=== PATIENT | female | born 1935 | race Caucasian/White ===

== ENCOUNTER 2017-08-26 12:20 | Inpatient (IN) | payer MEDICARE, BC ==
[~2017-08-26] VITALS: Ht 162.6 cm; Wt 54.4 kg
[~2017-08-26 12:20] MED LIST: ATR80PT PO; CEFU250T11 PO; DOCU-202 PO; FLU45SYR17 IM; FLU45SYR25 IM ONLY; LAMO100T52 PO; LISI-362 PO; MEGE400O23 PO; MOM PO; OMEP-125 PO; PNEU0.5D3 IM; POTA20PA10 PO; Potassium Chloride PO
--- NOTE | 2017-08-26 12:21 | ER Report ---
History and Physical Time Seen By MD: 12:21 HPI/ROS CHIEF COMPLAINT: Altered mental status HISTORY OF PRESENT ILLNESS: Patient is an 82-year-old female who has advanced dementia who is brought to the emergency department by her family for increased level of agitation and altered mental status. She recently was admitted to the hospital at the end of June of this year for urinary tract infection for similar type symptoms. Patient has not been eating or drinking in the past few days which raised the concern of the family members. For this reason she was brought to the emergency department for further evaluation. There is no reported fever at home. Patient is unable to really provide any useful history based on her mental status REVIEW OF SYSTEMS: Patient is unable to provide review of systems due to her advanced dementia. Family members say that she is not acting and responding normally she is also not eating or drinking which is not her usual Allergies: Coded Allergies: Penicillins (Verified Allergy, Unknown, 07/07/17) Sulfa (Sulfonamide Antibiotics) (Verified Allergy, Unknown, 07/07/17) codeine (Verified Allergy, Unknown, 07/07/17) Home Meds Active Scripts Cephalexin Monohydrate (CEPHALEXIN) 500 Mg Cap, 500 MG PO BID, #10 CAP Prov:GISELLA LIRIANO MD 08/28/17 Megestrol Acetate (MEGESTROL ACETATE) 400 Mg/10 Ml Oral.susp, 4 ML PO QDAY, #1 BOTTLE 5 Refills Prov:JAYSON FLAHERTY MD 08/21/17 Reported Medications Melatonin (MELATONIN) 1 Mg/1 Ml Liquid, 1 MG PO QHS 08/26/17 Lamotrigine (LAMOTRIGINE) 100 Mg Tablet, 100 MG PO QDAY ordered bid but taking q day 08/26/17 Discontinued Reported Medications Potassium Chloride (KLOR-CON) 20 Meq Packet, 1 PACKET PO QDAY, PACKET Mix with water, apple juice, apple sauce, etc 08/21/17 Discontinued Scripts Lamotrigine (LAMOTRIGINE) 100 Mg Tablet, 1 TAB PO BID, #180 TAB 3 Refills Prov:JAYSON FLAHERTY MD 10/29/16 Magnesium Hydroxide (MILK OF MAGNESIA) 400 Mg/5 Ml Oral.susp, 30 ML PO QDAY Y for CONSTIPATION, #1 BOT 1 Refill Prov:ANA LILIA LIRIANO MD 07/11/17 [Potassium Chl Pwd (*)20 Meq Pk] 20 MEQ PACK No Conflict Check, 20 MEQ PO DAILY , #10 PACK 0 Refills Mix with water/juice/applesauce/etc. Prov:ANA LILIA LIRIANO MD 07/11/17 Cefuroxime Axetil (CEFUROXIME) 250 Mg Tablet, 250 MG PO DAILY, #5 TAB 0 Refills Prov:ANA LILIA LIRIANO MD 07/11/17 Smoking Status: Former Smoker Hx Substance Use Disorder: No Constitutional Vital Sign - Last 24 Hours 08/26/17 08/26/17 08/26/17 08/26/17 12:24 12:26 12:30 12:31 Temp 97.5 Pulse 117 Resp 18 16 B/P (MAP) 113/77 113/77 (89) 134/111 (119) Pulse Ox 96 O2 Delivery Room Air 08/26/17 08/26/17 08/26/17 08/26/17 12:35 12:40 12:45 12:50 Pulse 105 105 115 112 Resp 10 14 15 16 B/P (MAP) 108/78 (88) Pulse Ox 91 100 08/26/17 08/26/17 08/26/17 08/26/17 12:55 13:00 13:05 13:10 Pulse 110 114 110 Resp 10 17 17 B/P (MAP) 109/96 (100) Pulse Ox 97 97 96 08/26/17 08/26/17 08/26/17 08/26/17 13:15 13:20 13:25 13:30 Pulse 106 101 105 115 Resp 6 19 14 19 B/P (MAP) 117/79 (92) Pulse Ox 94 08/26/17 08/26/17 08/26/17 08/26/17 13:35 13:40 13:45 13:50 Pulse 100 94 Resp 16 11 13 11 B/P (MAP) 113/91 (98) Pulse Ox 99 100 08/26/17 08/26/17 08/26/17 08/26/17 14:20 14:25 14:30 14:35 Pulse 118 99 102 ??? Resp 15 13 11 6 B/P (MAP) 130/100 (110) Pulse Ox 97 08/26/17 08/26/17 08/26/17 08/26/17 14:40 14:45 14:50 14:55 Pulse 98 98 93 94 Resp 13 12 8 12 B/P (MAP) 150/79 (102) 08/26/17 08/26/17 08/26/17 08/26/17 15:00 15:05 15:10 15:15 Pulse 92 96 92 89 Resp 15 15 12 9 B/P (MAP) 136/77 (96) Pulse Ox 93 94 92 94 08/26/17 08/26/17 08/26/17 08/26/17 15:20 15:25 15:30 15:35 Pulse 93 95 92 86 Resp 20 11 14 14 B/P (MAP) 106/75 (85) Pulse Ox 94 91 93 93 08/26/17 08/26/17 15:40 15:45 Pulse 87 89 Resp 19 11 B/P (MAP) 124/91 (102) Pulse Ox 96 93 Physical Exam General Appearance: The patient is alert, has no immediate need for airway protection and no signs of toxicity. Eyes: Pupils equal and round no pallor or injection. ENT, Mouth: Mucous membranes are moist. Respiratory: There are no retractions, lungs are clear to auscultation. Cardiovascular: Regular rate and rhythm. Gastrointestinal: Abdomen is soft and non tender, no masses, bowel sounds normal. Neurological: Awake, confused Skin: Warm and dry, no rashes. Musculoskeletal: Neck is supple non tender. Extremities are nontender, nonswollen and have full range of motion. Medical Decision Making Data Points Result Diagram: 08/27/17 0755 08/28/17 0522 Laboratory Hematology Test 08/26/17 13:14 08/26/17 13:31 Total Bilirubin 1.3 mg/dl (0.2-1.3) Aspartate Amino Transf (AST/SGOT) 43 U/L (0-35) Alanine Aminotransferase (ALT/SGPT) 20 U/L (0-56) Alkaline Phosphatase 77 U/L (0-126) Ammonia 14 UMOL/L (9-33) Troponin I 0.029 ng/ml Total Protein 7.5 gm/dl (6.3-8.2) Albumin 4.2 g/dl (3.5-5.0) Thyroid Stimulating Hormone (TSH) 1.91 uIU/ml (0.46-4.68) Urine Color Joy Urine Clarity Slightly-cloudy Urine pH 5.0 pH (4.8-9.5) Urine Specific [place] 1.027 Urine Protein 30 mg/dL (NEGATIVE) Urine Glucose (UA) Negative mg/dL (NEGATIVE) Urine Ketones Negative mg/dL (NEGATIVE) Urine Blood Small (NEGATIVE) Urine Nitrite Positive (NEGATIVE) Urine Bilirubin Negative (NEGATIVE) Urine Urobilinogen 4.0 mg/dL (0.2-1.9) Urine Leukocyte Esterase Trace (NEGATIVE) Urine RBC None /HPF (0-2/HPF) Urine WBC 8 /HPF (0-5/HPF) Urine WBC Clumps Few /HPF Urine Squamous Epithelial Cells Many /LPF (NONE-FEW) Urine Transitional Epithelial Cells Few /LPF (NONE-FEW) Urine Bacteria Many /HPF (NONE-FEW) Urine Mucus Few /HPF (NONE-FEW) Chemistry Test 08/26/17 13:14 08/26/17 13:31 Total Bilirubin 1.3 mg/dl (0.2-1.3) Aspartate Amino Transf (AST/SGOT) 43 U/L (0-35) Alanine Aminotransferase (ALT/SGPT) 20 U/L (0-56) Alkaline Phosphatase 77 U/L (0-126) Ammonia 14 UMOL/L (9-33) Troponin I 0.029 ng/ml Total Protein 7.5 gm/dl (6.3-8.2) Albumin 4.2 g/dl (3.5-5.0) Thyroid Stimulating Hormone (TSH) 1.91 uIU/ml (0.46-4.68) Urine Color Joy Urine Clarity Slightly-cloudy Urine pH 5.0 pH (4.8-9.5) Urine Specific [place] 1.027 Urine Protein 30 mg/dL (NEGATIVE) Urine Glucose (UA) Negative mg/dL (NEGATIVE) Urine Ketones Negative mg/dL (NEGATIVE) Urine Blood Small (NEGATIVE) Urine Nitrite Positive (NEGATIVE) Urine Bilirubin Negative (NEGATIVE) Urine Urobilinogen 4.0 mg/dL (0.2-1.9) Urine Leukocyte Esterase Trace (NEGATIVE) Urine RBC None /HPF (0-2/HPF) Urine WBC 8 /HPF (0-5/HPF) Urine WBC Clumps Few /HPF Urine Squamous Epithelial Cells Many /LPF (NONE-FEW) Urine Transitional Epithelial Cells Few /LPF (NONE-FEW) Urine Bacteria Many /HPF (NONE-FEW) Urine Mucus Few /HPF (NONE-FEW) Urinalysis Test 08/26/17 13:31 Urine Color Joy Urine Clarity Slightly-cloudy Urine pH 5.0 pH (4.8-9.5) Urine Specific [place] 1.027 Urine Protein 30 mg/dL (NEGATIVE) Urine Glucose (UA) Negative mg/dL (NEGATIVE) Urine Ketones Negative mg/dL (NEGATIVE) Urine Blood Small (NEGATIVE) Urine Nitrite Positive (NEGATIVE) Urine Bilirubin Negative (NEGATIVE) Urine Urobilinogen 4.0 mg/dL (0.2-1.9) Urine Leukocyte Esterase Trace (NEGATIVE) Urine RBC None /HPF (0-2/HPF) Urine WBC 8 /HPF (0-5/HPF) Urine WBC Clumps Few /HPF Urine Squamous Epithelial Cells Many /LPF (NONE-FEW) Urine Transitional Epithelial Cells Few /LPF (NONE-FEW) Urine Bacteria Many /HPF (NONE-FEW) Urine Mucus Few /HPF (NONE-FEW) Microbiology Microbiology Date/Time Source Procedure Growth Status 08/26/17 13:14 Blood Peripheral Draw Blood Culture - Preliminary NO GROWTH AFTER 2 DAYS, REINCUBATED Resulted 08/26/17 12:51 Blood Peripheral Draw Blood Culture - Preliminary NO GROWTH AFTER 2 DAYS, REINCUBATED Resulted 08/26/17 13:31 Cath Urine Urine Culture - Final Escherichia Coli Complete EKG/Imaging EKG Interpretation EKG shows sinus tachycardia with a ventricular rate of 120 bpm. Monitor Interpretation: Sinus Tachycardia Imaging MR: [id number] V: [id number] EXAM DATE: ORDERING PHYSICIAN: CARIN PINON TECHNOLOGIST: [place] [facility] [place] : 1935 Visit/Account:[id number] Date of Sevice: 08/26/2017 EXAMINATION: CT abdomen and pelvis without IV contrast HISTORY: AMS. TECHNIQUE: Axial CT images of the abdomen and pelvis were obtained without IV contrast, with coronal and sagittal 2D reconstructed images. One of the following dose optimization techniques was utilized in the performance of this exam: Automated exposure control; adjustment of the mA and/ or kV according to the patient's size; or use of an iterative reconstruction technique. Specific details can be referenced in the facility's radiology CT exam operational policy. COMPARISON: None. FINDINGS: Evaluation of the solid and viscus parenchymal organs is limited without the benefit of IV contrast. Image quality is also degraded by patient motion artifact. Liver: Normal hepatic size and morphology. Calcified granulomas in the liver. Gallbladder and bile ducts: Cholecystectomy. Spleen: Negative. Pancreas: Negative. Adrenal glands: Negative. Kidneys: No urinary calculi or hydronephrosis. Bowel and peritoneum: The small bowel and colon are normal in caliber. No bowel obstruction. No free fluid or free intraperitoneal air. Scattered colonic diverticulosis, without evidence of diverticulitis. Pelvic structures: The urinary bladder is decompressed, with a Carmen catheter in place. Lymph node assessment: Negative. Vessels: Moderate vascular calcifications. There is mild ectasia of the infrarenal abdominal aorta, measuring 2.3 cm. Musculoskeletal: No acute osseous findings. Osteopenia, with mild scattered degenerative changes along the spine. Body wall: Negative. Lung bases: Negative. IMPRESSION: 1. No acute intra-abdominal findings by noncontrast CT imaging. 2. Colonic diverticulosis. 3. Cholecystectomy. Report Dictated By: Marc Jolley MD at 08/26/2017 2:35 PM Report E-Signed By: Marc Jolley MD at 08/26/2017 2:38 PM WSN:[id number] FACILITY: [facility] PATIENT NAME: Lisa sIrael : 1935 MR: [id number] V: [id number] EXAM DATE: ORDERING PHYSICIAN: CARIN PINON TECHNOLOGIST: [place] [facility] [place] [facility] [place] Lisa Israel : 1935 Visit/Account:[id number] Date of Sevice: 08/26/2017 EXAMINATION: CT HEAD WITHOUT CONTRAST COMPARISON: 07/07/2017 HISTORY: Altered mental status PROCEDURE: Noncontrast CT from the vertex through the skull base. One of the following dose optimization techniques was utilized in the performance of this exam: Automated exposure control; adjustment of the mA and/or kV according to the patient's size; or use of an iterative reconstruction technique. Specific details can be referenced in the facility's radiology CT exam operational policy. FINDINGS: Brain volume: Moderate global atrophy. Hemorrhage/extra-axial fluid: No intracranial hemorrhage or extra-axial fluid collection. Scattered fat attenuation foci in the left extra-axial space as before. Mass effect/midline shift/edema: None. Ischemia: Left temporal encephalomalacia. Moderate chronic white matter disease elsewhere. No acute eaton-white differentiation loss. Ventricles and basal cisterns: Unchanged. Posterior fossa: Negative. Vessels: Carotid atherosclerosis. Calvarium, skull base, and scalp: Left-sided craniotomy as before. Visualized sinuses and orbits: Visualized paranasal sinuses are clear. Visualized globes are unremarkable. IMPRESSION: 1. No intracranial hemorrhage or mass effect. 2. Atrophy, chronic white matter disease, and left temporal encephalomalacia. No CT evidence of acute ischemia but if there is a clinical concern for an acute ischemic event, consider further characterization by MRI. Report Dictated By: Nile Estes MD at 08/26/2017 2:45 PM Report E-Signed By: Nile Estes MD at 08/26/2017 2:50 PM WSN:[id number] ED Course/Re-evaluation Clinical Indication for ER IV: Hydration, IV Access ED Course 08/26/2017 2:57:54 pm patient with urinary tract infection based on urine but also evidence of dehydration based on blood work. We will give a 30 mL/kg bolus of normal saline per sepsis protocol. Lactate 4.3. Monitor. Patient given IV Rocephin at this time we will contact hospitalist for admission Decision to Disposition Date: Aug 26, 2017 Decision to Disposition Time: 15:17 Depart Departure Latest Vital Signs Vital Signs Date Time Temp Pulse Resp B/P (MAP) Pulse Ox O2 Delivery O2 Flow Rate FiO2 08/26/17 15:45 89 11 93 08/26/17 15:40 124/91 (102) 08/26/17 12:24 97.5 Room Air Impression: Primary Impression: UTI (urinary tract infection) Additional Impressions: Sepsis Hypernatremia Condition: Improved Disposition: Admitted from ER (to DR Vines) Referrals: JAYSON FLAHERTY MD (PCP) New Scripts Cephalexin Monohydrate (CEPHALEXIN) 500 Mg Cap 500 MG PO BID, #10 CAP Prov: GISELLA LIRIANO MD 08/28/17 Problem Qualifiers Primary Impression: UTI (urinary tract infection) Urinary tract infection type: acute cystitis Hematuria presence: without hematuria Qualified Codes: N30.00 - Acute cystitis without hematuria Additional Impressions: Sepsis Sepsis type: sepsis due to unspecified organism Qualified Codes: A41.9 - Sepsis, unspecified organism CARIN PINON MD Aug 26, 2017 12:21
[2017-08-26] MEDS ORDERED: NS(*) 0.9% 500 ML BAG 500 ML IV ONE ×3 (12:32→14:40)
--- NOTE | 2017-08-26 12:47 | EKG ---
[place] [facility] [place] NAME: JUAN LAMA : [id number] MR: [id number] V: [id number] EXAM DATE: ORDERING PHYSICIAN: CARIN PINON TECHNOLOGIST: ROCKY Mccallum Reason : TACHY Blood Pressure : / mmHG Vent. Rate : 120 BPM Atrial Rate : 120 BPM P-R Int : 118 ms QRS Dur : 066 ms QT Int : 330 ms P-R-T Axes : 089 088 078 degrees QTc Int : 466 ms Sinus tachycardia Diffuse, non-specific ST abnormalities When compared with ECG of 07-JUL-2017 11:55, No with diffuse, non-specifice ST abnormalities Confirmed by CAMILLE SEN ([id number]) on 08/26/2017 6:57:19 PM Referred By: SHARLENE Confirmed By:CAMILLE SEN
[2017-08-26 13:29] LABS: PLATELET COUNT, AUTOMATED 255 K/uL (150-450)
[2017-08-26] MEDS ORDERED: cefTRIAXone 1 GM VIAL IVP ONE (13:50)
[2017-08-26] MEDS ORDERED: cefTRIAXone 1 GM VIAL ONE (14:31)
--- NOTE | 2017-08-26 14:42 | RADIOLOGY IMAGING REPORT ---
FACILITY: [facility] - [place] PATIENT NAME: Lisa Israel : 1935 MR: [id number] V: [id number] EXAM DATE: ORDERING PHYSICIAN: CARIN PINON TECHNOLOGIST: Location: [facility] - [place] Patient: Lisa Israel : 1935 Visit/Account:[id number] Date of Sevice: 08/26/2017 EXAMINATION: CT abdomen and pelvis without IV contrast HISTORY: AMS. TECHNIQUE: Axial CT images of the abdomen and pelvis were obtained without IV contrast, with rader l and sagittal 2D reconstructed images. One of the following dose optimization techniques was utilized in the performance of this exam: Autom ated exposure control; adjustment of the mA and/or kV according to the patient's size; or use of an i terative reconstruction technique. Specific details can be referenced in the facility's radiology C T exam operational policy. COMPARISON: None. FINDINGS: Evaluation of the solid and viscus parenchymal organs is limited without the benefit of IV contrast. Image quality is also degraded by patient motion artifact. Liver: Normal hepatic size and morphology. Calcified granulomas in the liver. Gallbladder and bile ducts: Cholecystectomy. Spleen: Negative. Pancreas: Negative. Adrenal glands: Negative. Kidneys: No urinary calculi or hydronephrosis. Bowel and peritoneum: The small bowel and colon are normal in caliber. No bowel obstruction. No free fluid or free intraperitoneal air. Scattered colonic diverticulosis, without evidence of diverticuli tis. Pelvic structures: The urinary bladder is decompressed, with a Carmen catheter in place. Lymph node assessment: Negative. Vessels: Moderate vascular calcifications. There is mild ectasia of the infrarenal abdominal aorta, measuring 2.3 cm. Musculoskeletal: No acute osseous findings. Osteopenia, with mild scattered degenerative changes al wanda the spine. Body wall: Negative. Lung bases: Negative. IMPRESSION: 1. No acute intra-abdominal findings by noncontrast CT imaging. 2. Colonic diverticulosis. 3. Cholecystectomy. Report Dictated By: Marc Jolley MD at 08/26/2017 2:35 PM Report E-Signed By: Marc Jolley MD at 08/26/2017 2:38 PM WSN:[id number]
--- NOTE | 2017-08-26 14:54 | RADIOLOGY IMAGING REPORT ---
[place] [facility] [place]IENT NAME: Lisa Israel : 1935 MR: [id number] V: [id number] EXAM DATE: ORDERING PHYSICIAN: CARIN PINON TECHNOLOGIST: Location: [facility] [place] Patient: Lisa Israel : 1935 Visit/Account:[id number] Date of Sevice: 08/26/2017 EXAMINATION: CT HEAD WITHOUT CONTRAST COMPARISON: 07/07/2017 HISTORY: Altered mental status PROCEDURE: Noncontrast CT from the vertex through the skull base. One of the following dose optimizat ion techniques was utilized in the performance of this exam: Automated exposure control; adjustment o f the mA and/or kV according to the patient's size; or use of an iterative reconstruction technique. Specific details can be referenced in the facility's radiology CT exam operational policy. FINDINGS: Brain volume: Moderate global atrophy. Hemorrhage/extra-axial fluid: No intracranial hemorrhage or extra-axial fluid collection. Scattered f at attenuation foci in the left extra-axial space as before. Mass effect/midline shift/edema: None. Ischemia: Left temporal encephalomalacia. Moderate chronic white matter disease elsewhere. No acute g ray-white differentiation loss. Ventricles and basal cisterns: Unchanged. Posterior fossa: Negative. Vessels: Carotid atherosclerosis. Calvarium, skull base, and scalp: Left-sided craniotomy as before. Visualized sinuses and orbits: Visualized paranasal sinuses are clear. Visualized globes are unremark able. IMPRESSION: 1. No intracranial hemorrhage or mass effect. 2. Atrophy, chronic white matter disease, and left temporal encephalomalacia. No CT evidence of acute ischemia but if there is a clinical concern for an acute ischemic event, consider further characteri zation by MRI. Report Dictated By: Nile Estes MD at 08/26/2017 2:45 PM Report E-Signed By: Nile Estes MD at 08/26/2017 2:50 PM WSN:[id number]
[2017-08-26 16:13] VITALS: BP 173/84
[2017-08-26] MEDS ORDERED: MELA1LIQ PO (16:56)
[2017-08-26] MEDS ORDERED: LAMO100T52 PO (16:56)
[2017-08-26] MEDS ORDERED: BISACODYL 10 MG SUPP PR PRN (18:05)
[2017-08-26] MEDS ORDERED: KCL 2 MEQ/ML 20 MEQ/10 ML VIAL 20 MEQ in D5 1/2 NS(*) 1000 ML BAG 1,000 ML IV PRN (18:05)
[2017-08-26] MEDS ORDERED: MAGNESIUM HYDROXIDE* 30ML UDCP PO PRN (18:05)
[2017-08-26] MEDS ORDERED: POLYETHYLENE GLYCOL 17 GM PKT ONE (18:18)
[2017-08-26] MEDS: POLYETHYLENE GLYCOL 17 GM PKT PO SCH (18:20)
[2017-08-26] MEDS: KCL/D1/2NS 20 MEQ 1000 ML 1,000 ML IV PRN (18:27)
--- NOTE | 2017-08-26 18:29 | History & Physical ---
History of Present Illness History of Present Illness 82yo female with a h/o advanced dementia who was brought to the ER for progressive weakness and lack of urine output. 5 days ago, she was in her normal state of health, and had blood tests done as part of a regular office visit and was found to have a sodium of 152. The family was told to encourage oral intake. 3 days ago, the patient became more confused than baseline and had decreased oral intake. For the last 2 days the patient hasn't been eating or drinking anything. Yesterday, was the last time she urinated. She has become weaker and weaker such that she wasn't able to ambulate. The family decided to bring her into the hospital. The family denies that the patient has complained of any f/c/cp/sob/dysuria/n/v. In the ER, she received about 1.5 liters of fluid and was started on Rocephin. 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 behavioral disturbance Status: Chronic Home Meds Active Scripts Megestrol Acetate (MEGESTROL ACETATE) 400 Mg/10 Ml Oral.susp, 4 ML PO QDAY, #1 BOTTLE 5 Refills Prov:JAYSON FLAHERTY MD 08/21/17 Reported Medications Melatonin (MELATONIN) 1 Mg/1 Ml Liquid, 1 MG PO QHS 08/26/17 Lamotrigine (LAMOTRIGINE) 100 Mg Tablet, 100 MG PO QDAY ordered bid but taking q day 08/26/17 Discontinued Reported Medications Potassium Chloride (KLOR-CON) 20 Meq Packet, 1 PACKET PO QDAY, PACKET Mix with water, apple juice, apple sauce, etc 08/21/17 Discontinued Scripts Lamotrigine (LAMOTRIGINE) 100 Mg Tablet, 1 TAB PO BID, #180 TAB 3 Refills Prov:JAYSON FLAHERTY MD 10/29/16 Magnesium Hydroxide (MILK OF MAGNESIA) 400 Mg/5 Ml Oral.susp, 30 ML PO QDAY Y for CONSTIPATION, #1 BOT 1 Refill Prov:ANA LILIA LIRIANO MD 07/11/17 [Potassium Chl Pwd (*)20 Meq Pk] 20 MEQ PACK No Conflict Check, 20 MEQ PO DAILY , #10 PACK 0 Refills Mix with water/juice/applesauce/etc. Prov:ANA LILIA LIRIANO MD 07/11/17 Cefuroxime Axetil (CEFUROXIME) 250 Mg Tablet, 250 MG PO DAILY, #5 TAB 0 Refills Prov:ANA LILIA LIRIANO MD 07/11/17 Allergies: Coded Allergies: Penicillins (Verified Allergy, Unknown, 07/07/17) Sulfa (Sulfonamide Antibiotics) (Verified Allergy, Unknown, 07/07/17) codeine (Verified Allergy, Unknown, 07/07/17) Patient History: FH: Alzheimers disease FH: alcoholism brother, , Age:45 sister, , Age:77 FH: dementia MOTHER, , Age:86 Unknown FATHER, Other Social/Family Hx She quit smoking in 1984 and smoked about 20yrs 1ppd. No reported alcohol use. She is and lives at home. Smoking Status: Former Smoker Hx Substance Use Disorder: No Social Drug Use: Never Review of Systems All Systems Reviewed/Normal: Yes, Except as Noted Exam Vital Signs Vital Signs Date Time Temp Pulse Resp B/P (MAP) Pulse Ox O2 Delivery O2 Flow Rate FiO2 08/26/17 16:59 93 Room Air 08/26/17 16:13 97.4 87 16 173/84 (113) General Appearance: Alert, Awake, No Acute Distress Neuro: Other (Doesn't follow commands or answer questions.) Cardiovascular: Regular Rate and Rhythm Respiratory: Clear to Auscultation GI: Abd Soft and Non-Tender Extremities: No Edema Medical Decision Making Data Points Result Diagram: 08/26/17 1314 08/26/17 1314 Item Value Date Time Lactate 4.3 mmol/L *H 08/26/17 1314 Creatinine 1.30 mg/dl H 07/11/17 0522 Creatinine 1.50 mg/dl H 08/21/17 1425 Creatinine 1.60 mg/dl H 08/26/17 1314 Sodium Level 144 mmol/L 07/11/17 0522 Sodium Level 152 mmol/L H 08/21/17 1425 Sodium Level 153 mmol/L H 08/26/17 1314 Aspartate Amino Transf (AST/SGOT) 39 U/L H 08/21/17 1425 Aspartate Amino Transf (AST/SGOT) 43 U/L H 08/26/17 1314 Alanine Aminotransferase (ALT/SGPT) 20 U/L 08/26/17 1314 Alanine Aminotransferase (ALT/SGPT) 21 U/L 08/21/17 1425 Alkaline Phosphatase 83 U/L 08/21/17 1425 Total Bilirubin 1.3 mg/dl 08/21/17 1425 Total Bilirubin 1.3 mg/dl 08/26/17 1314 Alkaline Phosphatase 77 U/L 08/26/17 1314 Ammonia 14 UMOL/L 08/26/17 1314 Troponin I 0.029 ng/ml 08/26/17 1314 Thyroid Stimulating Hormone (TSH) 1.91 uIU/ml 08/26/17 1314 Urine Blood Small 08/26/17 1331 Urine Nitrite Positive H 08/26/17 1331 Urine Urobilinogen 4.0 mg/dL H 08/26/17 1331 Urine Leukocyte Esterase Trace H 08/26/17 1331 Urine WBC 8 /HPF 08/26/17 1331 Urine WBC Clumps Few /HPF 08/26/17 1331 Urine Squamous Epithelial Cells Many /LPF H 08/26/17 1331 Urine Transitional Epithelial Cells Few /LPF 08/26/17 1331 Urine Bacteria Many /HPF H 08/26/17 1331 EKG / Imaging Imaging Abd/Pelvis CT - 1. No acute intra-abdominal findings by noncontrast CT imaging. 2. Colonic diverticulosis. 3. Cholecystectomy. Head CT - 1. No intracranial hemorrhage or mass effect. 2. Atrophy, chronic white matter disease, and left temporal encephalomalacia. No CT evidence of acute ischemia but if there is a clinical concern for an acute ischemic event, consider further characterization by MRI. Assessment and Plan Problems: (1) UTI (urinary tract infection) Status: Acute Assessment & Plan: She presented with increased weakness and confusion for a couple days prior to admission. Her WBC is elevated and had mild pyuria on catheter obtained UA. She was started on Rocephin. Blood and urine cultures are pending. (2) Hypernatremia Status: Acute Assessment & Plan: Secondary to decreased oral intake for about 2 days prior to admission. It is likely related to the UTI. Her lactate was elevated. She has been hydrated, so will recheck a lactate and BMP. Will continue hydration. (3) Brain tumor Status: Chronic Assessment & Plan: It was resected many years ago. She is on lamotrigine chronically (it is written to be taken twice daily, but her only gives it daily). A level is pending. (4) CKD (chronic kidney disease) stage 3, GFR 30-59 ml/min Status: Chronic Assessment & Plan: Baseline creatinine is 1.3-1.6. Will follow. Copies to: JAYSON FLAHERTY MD Venous Thromboembolism Antithrombotics Is Pt On Any Antithrombotics?: No Exam Sepsis Risk: No Definite Risk Problem Qualifiers (1) UTI (urinary tract infection): Urinary tract infection type: acute cystitis Hematuria presence: without hematuria Qualified Codes: N30.00 - Acute cystitis without hematuria CAMILLE SEN MD Aug 26, 2017 18:29
[2017-08-26 19:27] VITALS: BP 100/88
[2017-08-26 20:10] VITALS: BP 103/57
[2017-08-26] MEDS: MELATONIN 3 MG TAB PO SCH (20:47)
[2017-08-26] MEDS: DOCUSATE SOD LIQ 100 MG/10 ML UDC PO SCH (20:48)
[2017-08-26] MEDS ORDERED: DOCUSATE SODIUM 100 MG CAP PO SCH (21:00)
[2017-08-27 00:01] VITALS: BP 112/69
[2017-08-27 05:44] VITALS: BP 187/85
[2017-08-27 08:04] LABS: PLATELET COUNT, AUTOMATED 183 K/uL (150-450)
[2017-08-27 08:06] VITALS: BP 162/84
[2017-08-27] MEDS: KCL/D1/2NS 20 MEQ 1000 ML 1,000 ML IV PRN ×2 (08:26→22:56)
[2017-08-27] MEDS: lamoTRIgine 100 MG TAB PO SCH (08:26)
[2017-08-27] MEDS: ENOXAPARIN 30 MG/0.3 ML SYR SC SCH (08:27)
[2017-08-27] MEDS: DOCUSATE SOD LIQ 100 MG/10 ML UDC PO SCH ×2 (08:27→21:14)
[2017-08-27] MEDS: POLYETHYLENE GLYCOL 17 GM PKT PO SCH (08:27)
[2017-08-27] MEDS ORDERED: MEGESTROL ACETATE 40 MG/ML PO SCH (09:00)
[2017-08-27 10:10] VITALS: Ht 162.6 cm; Wt 54.4 kg
[2017-08-27 11:08] VITALS: BP 161/83
--- NOTE | 2017-08-27 11:38 | Hospitalist Progress Note ---
Subjective Progress Notes Subjective This patient was admitted for dehydration. She had no acute changes overnight. Patient Complains of: Cardiovascular: No: Chest Pain Respiratory: No: Shortness of Breath Physical Exam Vital Signs Date Time Temp Pulse Resp B/P (MAP) Pulse Ox O2 Delivery O2 Flow Rate FiO2 08/27/17 11:08 97.6 90 161/83 (109) 08/27/17 08:09 94 Room Air 08/27/17 08:06 16 Intake and Output 08/28/17 07:00 Intake Total 261 ml Balance 261 ml Intake Oral 30 ml IV Total 231 ml # Bowel Movements 1 Cardiovascular: Regular Rate and Rhythm Respiratory: Clear to Auscultation Result Diagram: 08/27/17 0755 08/27/17 0755 Monitor Interpretation: Sinus Tachycardia Assessment and Plan Problems: (1) UTI (urinary tract infection) Status: Acute Assessment & Plan: She was initially placed on ceftriaxone secondary to an elevated WBC and pyuria. It now appears that her elevated WBC was secondary to hemoconcentration and that her urine was contaminated. Antibiotics were discontinued today. (2) Dehydration Status: Resolved Assessment & Plan: She had not been eating or drinking for several days prior to admission. Her labs were consistent with significant dehydration. She is now improving with IV fluids. (3) Brain tumor Status: Chronic Assessment & Plan: It was resected many years ago. She is on lamotrigine chronically (it is written to be taken twice daily, but her only gives it daily). A level is pending. (4) CKD (chronic kidney disease) stage 3, GFR 30-59 ml/min Status: Chronic Assessment & Plan: Baseline creatinine is 1.3-1.6. Exam Sepsis Risk: Severe Sepsis Risk Problem Qualifiers (1) UTI (urinary tract infection): Urinary tract infection type: acute cystitis Hematuria presence: without hematuria Qualified Codes: N30.00 - Acute cystitis without hematuria RAFAEL SCHULTZ DO Aug 27, 2017 11:38
[2017-08-27] MEDS ORDERED: cefTRIAXone 1 GM VIAL IVP SCH (14:00)
--- NOTE | 2017-08-27 14:49 | SWALLOW EVALUATION ---
Initial ST Cio: Lois Mann MS, CCC-SHAFTING WORKER Type of Assessment: Dysphagia Evaluation Evaluation Date: 08-27-17 BACKGROUND The patient is an 89year old female admitted to [facility] UTI/dehydration. She was referred for an ST swallow evaluation. PREVIOUS LEVEL OF FUNCTION: Primary Medical Diagnosis: Aphasia post brain tumor approx 1986 Prior Hospitalization: Prior Level of Function: dependent on spouse for all IADLs, ADLs Medical Complications/Past Medical History: See chart for details Follows instructions: no Functional Communication Deficits impact swallow function/safety, or response to therapy: Yes DYSPHAGIA Dysphagia Risk Evaluation Protocol DREP: Water Swallow Test: Pass with modifications, Puree Swallow Test: Pass, Solids Swallow Test: Pass Dyshpagia Severity Rating Scale: Level 3: Mild-moderate dysphagia. potential for aspiration exists but is diminished by a modified diet at this time. Time for eating is significantly increased; thus supplemental nutrition may be indicated. Sialorrhea: No Xerostomia: No Supplemental Oxygen Use: No Oxygen Saturation: stable Oral Structure and Function: largely edentulous Respiratory/Swallow Coordination: Typically patterned (ie. exhale/swallow/ exhale) Oral Stage Oral Stage Dysphagia: decrease oral motor control with bolus intake of solids and liquids increasing risk of aspiration of liquids Pharyngeal Stage Pharyngeal Stage Dysphagia: No s/s of acute pharyngeal stage dysphagia including penetration/ aspiration with liquids or foods. Aspiration Risk: Increased d/t oral dysphagia, advanced age, dementia, dependent on others to assist with feed ST ASSESSMENT SUMMARY DYSPHAGIA Pt passed solids trials and passed liquids trials with modified bolus presentation. Liquids presented with spoon or syringe demonstrate decreased risk over cup rim drink d/t decreased oral motorl and bolus control from cup rim. u RECOMMENDATIONS 1. Diet Modification: Food: Continue YUNIER and regular/thin liquides from spoon/ syringe with return to cup rim as medical condition improves and pt demonstrates improved oral motor control for bolus management of cup rim sip 2. Speech Therapy: The patient would benefit from ST 4x/wk to address the above described concerns PLAN OF CARE Short Term Goals 1. The caregiver will receive safe swallow and modified diet education and provided indep teach back 2. The patient will demonstrate improved oral intake of liquids from cup rim to decrease risk of dehydration using tactile stim increase oral motor response. Usp Goals 1. The patient will demonstrate return to PLOF with liquids decreasing risk of dehydration Patient Goals: Return to prior level of independence with liq Rehabilitation Prognosis: Good. Medical condition improving Thank you for this referral. Lois Mann M.S., [facility]3]-SHAFTING WORKER Speech Therapist ALEJANDRO
[2017-08-27 16:20] VITALS: BP 170/107
[2017-08-27 18:41] VITALS: BP 168/81
[2017-08-27] MEDS ORDERED: DOCUSATE SOD LIQ 100 MG/10 ML UDC PO SCH (21:00)
[2017-08-27] MEDS: MELATONIN 3 MG TAB PO SCH (21:14)
[2017-08-28 03:34] VITALS: BP 161/78
[2017-08-28 08:06] VITALS: BP 110/93
--- NOTE | 2017-08-28 08:19 | Hospitalist Progress Note ---
Subjective Progress Notes Subjective This patient was admitted for dehydration and acute renal failure. She had no acute changes overnight. Patient Complains of: Cardiovascular: No: Chest Pain Respiratory: No: Shortness of Breath Physical Exam Vital Signs Date Time Temp Pulse Resp B/P (MAP) Pulse Ox O2 Delivery O2 Flow Rate FiO2 08/28/17 08:06 82 16 110/93 (99) 95 Room Air 08/28/17 03:34 97.7 Cardiovascular: Regular Rate and Rhythm Respiratory: Clear to Auscultation Result Diagram: 08/27/17 0755 08/28/17 0522 Monitor Interpretation: Sinus Tachycardia Assessment and Plan Problems: (1) UTI (urinary tract infection) Status: Acute Assessment & Plan: She was initially placed on ceftriaxone secondary to an elevated WBC and pyuria. It now appears that her elevated WBC was secondary to hemoconcentration and that her urine was contaminated. Antibiotics were discontinued. (2) Dehydration Status: Resolved Assessment & Plan: She had not been eating or drinking for several days prior to admission. Her labs were consistent with significant dehydration. She has improved with IV fluids. We did discuss the possibility of her receiving IV fluids through home health when her intake drops. Social work has been consulted. (3) Brain tumor Status: Chronic Assessment & Plan: It was resected many years ago. She is on lamotrigine chronically (it is written to be taken twice daily, but her only gives it daily). A level is therapeutic. (4) CKD (chronic kidney disease) stage 3, GFR 30-59 ml/min Status: Chronic Assessment & Plan: Baseline creatinine is 1.3-1.6. Exam Sepsis Risk: No Definite Risk Problem Qualifiers (1) UTI (urinary tract infection): Urinary tract infection type: acute cystitis Hematuria presence: without hematuria Qualified Codes: N30.00 - Acute cystitis without hematuria RAFAEL SCHULTZ DO Aug 28, 2017 08:19
[2017-08-28] MEDS: lamoTRIgine 100 MG TAB PO SCH (09:38)
[2017-08-28] MEDS: DOCUSATE SOD LIQ 100 MG/10 ML UDC PO SCH (09:38)
[2017-08-28] MEDS: POLYETHYLENE GLYCOL 17 GM PKT PO SCH (09:39)
[2017-08-28] MEDS: ENOXAPARIN 30 MG/0.3 ML SYR SC SCH (09:39)
--- NOTE | 2017-08-28 12:34 | Medical Nutrition Therapy ---
Nutrition Anthropometrics Height (Inches): 64.00 Height (Calculated Centimeters: 162.722942 Weight (Pounds): 120 Weight (Calculated Kilograms): 54.431 BMI Calculated: 20.60 Gwyn Nutrition Score: Very Poor Gwyn Nutrition Risk Score: 15 Dietary Referral Nutrition Risk Factors: Recent Nutrition Impact Nutrition Risk Comment: may pocket foods Physical Findings Physical Appearance: BMI- WNR Skin Appearance Skin Appearance: Edema Edema Location Modifier: Edema Location: Type of Edema: Degree of Edema: Gastrointestinal Symptoms GI Symtoms: Constipation Tube Present: Bowel Sounds: Recent Bowel Pattern: Stool Characteristics: Nutritional Diagnosis Nutritional Risk Acuity 2: Pr Appetite > 3d, Swallowing Problem Nutritional Risk Acuity 3: Alzheimer's Nutritional Risk Acuity 4: %IBW 90-100% Past Medical History: dementia, CKD stage 3, UTI, alzheimer's, brain tumor (removed 1986) Nutritional Acuity: 2-Moderate Nutrition Diagnosis: Inadequate Food Intake, Swallowing Difficulties Nutrition Etiology: Physiological Causes Nutrition Problem/Etiology/Sym: AEB intake ranging 5-50%; SPL eval recommending fluids by spoon Energy Requirement: 1280 (M-SJ) Protein Requirement: 55 (1gm/kg) Fluid Requirement: 1360 Diet Type: Diet as Tolerated YUNIER/REG Nutrition Intervention: Cont diet as ordered, Encourage intake, Between meal supplement Additional Diet Restrictions: PUT PROTEIN POWDER IN APPROPRIATE FOODS Diet Comment To [facility]: PLEASE OFFER NUTR SUPPL Nutrition Monitoring & Eval Nutrition Goals: Eat 75-100% Meal RD Patient Assessment Time: [address] Assessment Type: RD Assessment Patient Nutrition Acuity: 2-Moderate Follow Up Date: Sep 02, 2017 Nutritional Comment: 08/27/17 Pt admitted for UTI and altered mental status. Pt was admitted in June for UTI/lack of appetite as well. Weight has been stable since. Family reports lack of food/fluid intake over the last 3 days. Pt has only had bites of food since admission. Notable labs include Na 154, BUN 22, and Cr 1.3. Total pro and alb are WNL, but will offer nutr supplement and encourage food/fluid intake. 08/28 SALES ENGAGEMENT MANAGER eval recommended YUNIER with spoon or syring for thin liquids. Pt eating 0-50% of small to regular potions. BUN 15, creatinine 1.2. Dehydration resolved. alb 4.2. Will offer nutr supplments to increase kcal and protein intake. Cont to monitor and encourage intake. KAJAL SINGH Aug 28, 2017 12:34
[2017-08-28] MEDS ORDERED: CEPHALEXIN MONO 500 MG CAP PO SCH (13:50)
--- NOTE | 2017-08-28 14:10 | Hospitalist Depart ---
Discharge Summary Reason for Hosp/Final Diag: (1) UTI (urinary tract infection) Status: Acute Hospital Course & Plan: She was initially placed on ceftriaxone secondary to an elevated WBC and pyuria. Her cath urine culture grew E. coli which was vang sensitive. She was afebrile and WBC was normal at the time of discharge. She will continue Keflex 500mg bid for 5 days after discharge. (2) Dehydration Status: Resolved Hospital Course & Plan: She had not been eating or drinking for several days prior to admission. Her labs were consistent with significant dehydration. This improved with IV fluids. She may need IV fluids through home health when her intake drops. Social work has arranged for her to have Home Health services after discharge. (3) Brain tumor Status: Chronic Hospital Course & Plan: The patient is s/p resection many years ago. She is on lamotrigine chronically (it is written to be taken twice daily, but her only gives it daily). A level was therapeutic. (4) CKD (chronic kidney disease) stage 3, GFR 30-59 ml/min Status: Chronic Hospital Course & Plan: Baseline creatinine is 1.3-1.6. Creatinine on discharge was 1.2. Departure Weight (Pounds): 120 Result Diagram: 08/27/17 0755 08/28/17 0522 Item Value Date Time Lamotrigine (Lamictal) Level 6.2 ug/mL 08/26/17 5008 Condition: Improved Discharge: Home, Home Health PT/OT Follow Up For: PT For Strengthening, ST Evaluation and Treat Home Health RN Follow Up For: Nursing Assessment, Other Home Health PHILANTHROPY OFFICER Follow Up For: ADL Assistance Discharge Code Status: DNR, DNI Time Spent: < 30 min Discharge Instructions Home Meds Active Scripts Cephalexin Monohydrate (CEPHALEXIN) 500 Mg Cap, 500 MG PO BID, #10 CAP Prov:GISELLA LIRIANO MD 08/28/17 Megestrol Acetate (MEGESTROL ACETATE) 400 Mg/10 Ml Oral.susp, 4 ML PO QDAY, #1 BOTTLE 5 Refills Prov:JAYSON FLAHERTY MD 08/21/17 Reported Medications Melatonin (MELATONIN) 1 Mg/1 Ml Liquid, 1 MG PO QHS 08/26/17 Lamotrigine (LAMOTRIGINE) 100 Mg Tablet, 100 MG PO QDAY ordered bid but taking q day 08/26/17 Discontinued Reported Medications Potassium Chloride (KLOR-CON) 20 Meq Packet, 1 PACKET PO QDAY, PACKET Mix with water, apple juice, apple sauce, etc 08/21/17 Discontinued Scripts Lamotrigine (LAMOTRIGINE) 100 Mg Tablet, 1 TAB PO BID, #180 TAB 3 Refills Prov:JAYSON FLAHERTY MD 10/29/16 Magnesium Hydroxide (MILK OF MAGNESIA) 400 Mg/5 Ml Oral.susp, 30 ML PO QDAY Y for CONSTIPATION, #1 BOT 1 Refill Prov:ANA LILIA LIRIANO MD 07/11/17 [Potassium Chl Pwd (*)20 Meq Pk] 20 MEQ PACK No Conflict Check, 20 MEQ PO DAILY , #10 PACK 0 Refills Mix with water/juice/applesauce/etc. Prov:ANA LILIA LIRIANO MD 07/11/17 Cefuroxime Axetil (CEFUROXIME) 250 Mg Tablet, 250 MG PO DAILY, #5 TAB 0 Refills Prov:ANA LILIA LIRIANO MD 07/11/17 Follow up Referrals: Internal Medicine - In Two Weeks @ [facility] with Jayson Flaherty Md Diet: Regular Activity: As Tolerated Copies to: JAYSON FLAHERTY MD Venous Thromboembolism Antithrombotics Is Pt On Any Antithrombotics?: No [id number] Certification Face to Face Home Health Certification Institutional Provider conducted the [id number] encounter. Electronic Undersigning Physician Certifies Home Health. I certify that the patient has been under my care and that I had a [id number] encounter that meets the physician [id number] encounter requirements with this patient. This patient is home-bound due to safety issues and continues to require assistance with ADL's. I certify that based on my findings, that Nursing, Aides and the following Home Health services are medically necessary: PT/ST Medical Necessity: Nursing, Rehab Date Face to Face Conducted: Aug 28, 2017 Problem Qualifiers (1) UTI (urinary tract infection): Urinary tract infection type: acute cystitis Hematuria presence: without hematuria Qualified Codes: N30.00 - Acute cystitis without hematuria GISELLA LIRIANO MD Aug 28, 2017 14:10
[2017-08-28] MEDS ORDERED: CEPH500C24 PO (14:12)
[2017-08-28] MEDS ORDERED: INFLUENZA VIRUS VAC 0.5 ML SYR IM ONLY ONE (18:05)
== END 2017-08-28 16:00 | disposition home health service (06) | DRG 872 ==
LOC: ER 12:27 → MED 15:47
PROVIDERS: ADMIT Internal Medicine; ATTEND Internal Medicine
DX: A41.51 Sepsis due to Escherichia coli [E. coli] (principal); N30.00 Acute cystitis without hematuria; E87.0 Hyperosmolality and hypernatremia; N17.9 Acute kidney failure, unspecified; E86.0 Dehydration; I12.9 Hypertensive chronic kidney disease with stage 1 through stage 4 chronic kidney disease, or unspecified chronic kidney disease; B96.20 Unspecified Escherichia coli [E. coli] as the cause of diseases classified elsewhere; N18.3 Chronic kidney disease, stage 3 (moderate); G30.1 Alzheimer's disease with late onset; F02.80 Dementia in other diseases classified elsewhere, unspecified severity, without behavioral disturbance, psychotic disturbance, mood disturbance, and anxiety; Z88.0 Allergy status to penicillin; Z88.2 Allergy status to sulfonamides; Z88.8 Allergy status to other drugs, medicaments and biological substances; Z87.891 Personal history of nicotine dependence; Z85.841 Personal history of malignant neoplasm of brain; Z90.710 Acquired absence of both cervix and uterus; Z90.49 Acquired absence of other specified parts of digestive tract
CPT/HCPCS: 36415; 70450; 74176; 80175; 81001; 82040; 82140; 82247; 82310; 82374; 82435; 82565; 82947; 83605; 84075; 84132; 84155; 84295; 84443; 84450; 84460; 84484; 84520; 85025; 87040; 87077; 87088; 87186; 93005; 96361; 96374; 97161; 97165; 99285; J0696; J1650; J3480; J7040; J9999